=== PATIENT | female | born 1955 | race Caucasian/White ===

== ENCOUNTER 2017-08-26 12:37 | Emergency (ER) | payer OTHER ==
[2017-08-26 13:16] VITALS: BP 171/97
--- NOTE | 2017-08-26 14:42 | RAD ---
HISTORY: Cough COMPARISONS: None VIEWS: 4: Frontal dual-energy and lateral views of the chest. FINDINGS: CARDIOMEDIASTINAL SILHOUETTE: The cardiomediastinal silhouette is normal. SKYLER: The skyler are normal. PLEURA: The costophrenic angles are sharp. No pleural abnormalities are noted. LUNG PARENCHYMA: The lungs are clear. ABDOMEN: The upper abdomen is clear. There is no subphrenic gas. BONES AND SOFT TISSUES: No bone or soft tissue abnormalities are noted. OTHER: None. IMPRESSION: NO ACTIVE CARDIOPULMONARY DISEASE.
--- NOTE | 2017-08-26 14:57 | UC ---
Martha Frost Gabriel, scribed for Robinson Sweet MD on 08/26/17 at 1350 . General HPI - HPI Summary HPI Summary: This patient is a 62 year old F [place] [facility] [place] son radha with a chief complaint of weakness that began yesterday. The patient rates the pain 6/10 in severity. Patient reports cough, palpitations described as slow, fatigue, tremor increased from baseline, and increased urinary frequency. Pt states she has felt like this 3 or for times since late last year , she states she has a diagnosis for this but it does not have a name. She reports receiving disability for it because it interferes with her working and states it is episodic in nature. Typically she just need to rest to resolve it but yesterday she has felt more tired. Hx chronic pain, tremors, chronic fatigue , spinal stenosis in the neck, and ataxia. - History of Current Complaint Chief Complaint: UCGeneralIllness Stated Complaint: WEAKNESS, FATIGUE Time Seen by Provider: 08/26/17 13:41 Hx Obtained From: Patient Onset/Duration: Lasting Days - 1, Still Present Onset Severity: Moderate Current Severity: Moderate Pain Intensity: 6 Associated Signs & Symptoms: Positive: Cough, Palpitations, Weakness, Other - see HPI - Allergy/Home Medications Allergies/Adverse Reactions: Allergies Allergy/AdvReac Type Severity Reaction Status Date / Time diflunisal [From Dolobid] Allergy Unknown Verified 08/26/17 13:16 Reaction Details shellfish derived Allergy Hives/Diff. Verified 08/26/17 13:16 Breathing/I tching cerminex Allergy Rash Uncoded 08/26/17 13:16 Home Medications: Home Medications Lisinopril [Lisinopril 2.5 MG-] 2.5 mg PO DAILY 08/26/17 [History Confirmed ] PMH/Surg Hx/FS Hx/Imm Hx - Additional Past Medical History Additional PMH: chronic fatigue, ataxia, chronic pain, tremor Cardiovascular History: Hypertension GI/ History: Ulcer Neurological History: Other Other Neurological History: stenosis in the neck Other History Of: Negative For: Hepatitis C - Surgical History Surgical History: Yes Surgery Procedure, Year, and Place: cryo surgery cervix - Family History Known Family History: Positive: Hypertension - Social History Lives: With Family Alcohol Use: None Substance Use Type: None Smoking Status (MU): Never Smoked Tobacco Review of Systems Constitutional: Fatigue Respiratory: Cough Cardiovascular: Palpitations - SLOW Genitourinary: Frequency Musculoskeletal: Other: - tremor that has increased from baseline Neurological: Weakness All Other Systems Reviewed And Are Negative: Yes Physical Exam - Summary Physical Exam Summary: General: well-appearing, no pain distress Skin: warm, color reflects adequate perfusion, dry Head: normal Eyes: EOMI, PADMINI ENT: normal Neck: supple, nontender Respiratory: CTA, breath sounds present Cardiovascular: RRR Abdomen: soft, nontender Bowel: present Musculoskeletal: normal, strength/ROM intact Neurological: sensory/motor intact, A&O x3, generalized weakness with no focal deficits Psychological: affect/mood appropriate Triage Information Reviewed: Yes Vital Signs: Initial Vital Signs Temp 97.7 F 08/26/17 13:07 Pulse 70 08/26/17 13:07 Resp 16 08/26/17 13:07 BP 171/97 08/26/17 13:07 Pulse Ox 99 08/26/17 13:07 Vital Signs Reviewed: Yes Diagnostics - EKG Cardiac Rate: NL - taken at 1403 Cardiac Rhythm: Sinus: Normal - at [address] Segment: Normal Course/Dx - Course Course Of Treatment: THE PATIENT IS MOST CONCERNED ABOUT HER HEART PALPITATIONS AND NEAR SYNCOPE. SHE WONDERS IF SHE HAD A HEART ATTACK. I DISCUSSED THE NEED TO BE EVALUATED IN THE EMERGENCY DEPARTMENT FOR THESE CONCERNS. SHE DECLINED AMBULANCE TRANSPORT, HER SON WILL TAKE HER TO THE ED. BP noted and advised to follow up with PCP. - Differential Dx - Multi-Symptom Provider Diagnoses: PALPITATIONS. NEAR SYNCOPE. WEAKNESS. HTN Discharge - Sign-Out/Discharge Documenting (check all that apply): Discharge/Admit/Transfer - Discharge Plan Condition: Stable Disposition: HOME Patient Education Materials: Heart Palpitations (ED), Weakness (ED), Near Syncope (ED) Referrals: [facility] [place]YSIC[place] REFERRAL [Outside] Additional Instructions: GO DIRECTLY TO THE EMERGENCY DEPARTMENT FOR FURTHER EVALUATION OF YOUR PALPITATIONS, NEAR SYNCOPE, AND WEAKNESS. - Billing Disposition and Condition Condition: STABLE Disposition: HOME The documentation as recorded by the Martha leone Gabriel accurately reflects the service I personally performed and the decisions made by me, Robinson Sweet MD.
== END 2017-08-26 15:16 | disposition home or self-care (01) ==
LOC: UCEAST 12:37
DX: R00.2 Palpitations (principal); R55 Syncope and collapse; R53.1 Weakness; I10 Essential (primary) hypertension; Z88.8 Allergy status to other drugs, medicaments and biological substances; Z88.6 Allergy status to analgesic agent; Z91.013 Allergy to seafood
CPT/HCPCS: 71046; 93005; 99202; G0463

== ENCOUNTER 2017-08-26 15:28 | Emergency (ER) | payer OTHER ==
[2017-08-26 16:40] LABS: INR 0.92 (0.77-1.02)
[2017-08-26 16:43] LABS: EGFR Non-African American 67.3 (>60)
[2017-08-26 16:48] LABS: ABS Basophils 0 10^3/ul (0-0.2); ABS Eosinophils 0.2 10^3/ul (0-0.6); ABS Lymphocytes 1.9 10^3/ul (1.0-4.8); ABS Monocytes 0.4 10^3/ul (0-0.8); ABS Neutrophils 3.9 10^3/ul (1.5-7.7); ABS Nucleated RBC 0 10^3/ul; Eosinophil % 2.6 % (0-6); Hematocrit 39 % (35-47); Hemoglobin 13.1 g/dl (12.0-16.0); Lymphocyte % 29.5 % (25-47); Mean Corpuscular HGB Conc 34 g/dl (31-36); Mean Corpuscular Hemoglobin 30 pg (27-31); Mean Corpuscular Volume 90 fL (80-97); Mean Platelet Volume 7.9 um3 (7.4-10.4); Nucleated Red Blood Cells % 0.1; Platelet Count 216 10^3/ul (150-450); Red Blood Count 4.29 10^6/ul (4.0-5.4); Red Cell Distribution Width 12 % (10.5-15); White Blood Count 6.4 10^3/ul (3.5-10.8)
[2017-08-26 18:02] LABS: Urine Appearance Clear; Urine Blood Negative (Negative); Urine Color Yellow; Urine Ketones 1+ (Negative); Urine Protein Negative (Negative); Urine Specific Gravity 1.015 (1.010-1.030); Urine Urobilinogen Negative (Negative)
[2017-08-26 18:30] VITALS: BP 163/89
--- NOTE | 2017-08-26 18:46 | ED ---
Amelia Frost Julia, scribed for Harley Lee on 08/26/17 at 1608 . Palpitations / Dysrhythmia - HPI Summary HPI Summary: This patient is a 62 year old F presenting to [facility] from Urgent Care accompanied by her son with a chief complaint of weakness and lightheadedness with fast palpitations beginning yesterday with slight improvement. She felt like passing out with onset of symptoms, but denies syncope. She denies chest pain. She reports intermittent tremors at baseline and has been seen by a neurologist for these symptoms with no diagnoses. She states current symptoms are worse than her typical flare ups. Medications include 2.5mg of Lisinopril. - History of Current Complaint Chief Complaint: EDDysrhythmPalp Time Seen by Provider: 08/26/17 15:57 Hx Obtained From: Patient Onset/Duration: Lasting Days Severity Initially: Moderate Severity Currently: Mild Character: Fast Associated Signs & Symptoms: Lightheadedness - Allergy/Home Medications Allergies/Adverse Reactions: Allergies Allergy/AdvReac Type Severity Reaction Status Date / Time diflunisal [From Dolobid] Allergy Unknown Verified 08/26/17 15:32 Reaction Details shellfish derived Allergy Hives/Diff. Verified 08/26/17 15:32 Breathing/I tching cerminex Allergy Rash Uncoded 08/26/17 15:32 PMH/Surg Hx/FS Hx/Imm Hx Cardiovascular History: Reports: Hx Hypertension - ON MEDS Respiratory History: Reports: Hx Asthma - EXERCISE INDUCED - Surgical History Surgery Procedure, Year, and Place: cryo surgery cervix Infectious Disease History: No Infectious Disease History: Denies: Traveled Outside the [place] in Last 30 Days - Family History Known Family History: Positive: Hypertension - Social History Alcohol Use: None Substance Use Type: Reports: None Smoking Status (MU): Never Smoked Tobacco Review of Systems Positive: Other - lightheadedness Positive: Palpitations. Negative: Chest Pain Neurological: Other - tremors Positive: Weakness. Negative: Syncope All Other Systems Reviewed And Are Negative: Yes Physical Exam - Summary Physical Exam Summary: Appearance: Well-appearing, Well-nourished, lying in bed comfortably Skin: Warm, dry, no obvious rash Eyes: sclera anicteric, no conjunctiva pallor ENT: mucous membranes moist, pharynx appears normal Neck: Supple, nontender Respiratory: Clear to auscultation, no signs of respiratory distress Cardiovascular: Normal S1, S2. No murmurs. Normal distal pulses in tibial and radial bilaterally. Abdomen: Soft, nontender, normal active bowel sounds present Musculoskeletal: Normal, Strength/ROM Intact Neurological: A&Ox3, awake and alert, mentation is normal, speech is fluent and appropriate, tremors (patient reports at baseline) Psychiatric: affect is normal, does not appear anxious or depressed Triage Information Reviewed: Yes Vital Signs On Initial Exam: Initial Vitals Temp Pulse Resp BP Pulse Ox 97.6 F 63 18 181/138 98 08/26/17 15:32 08/26/17 15:32 08/26/17 15:32 08/26/17 15:32 08/26/17 15:32 Vital Signs Reviewed: Yes Diagnostics - Vital Signs Vital Signs Temp Pulse Resp BP Pulse Ox 08/26/17 15:32 97.6 F 63 18 181/138 98 - Laboratory Lab Results: Lab Results 08/26/17 08/26/17 08/26/17 Range/Units 16:17 16:17 16:17 WBC 6.4 (3.5-10.8) 10^3/ul RBC 4.29 (4.0-5.4) 10^6/ul Hgb 13.1 (12.0-16.0) g/dl Hct 39 (35-47) % MCV 90 (80-97) fL MCH 30 (27-31) pg MCHC 34 (31-36) g/dl RDW 12 (10.5-15) % Plt Count 216 (150-450) 10^3/ul MPV 7.9 (7.4-10.4) um3 Neut % (Auto) 61.3 (38-83) % Lymph % (Auto) 29.5 (25-47) % Smith % (Auto) 6.1 (0-7) % Eos % (Auto) 2.6 (0-6) % Baso % (Auto) 0.5 (0-2) % Absolute Neuts (auto) 3.9 (1.5-7.7) 10^3/ul Absolute Lymphs (auto) 1.9 (1.0-4.8) 10^3/ul Absolute Monos (auto) 0.4 (0-0.8) 10^3/ul Absolute Eos (auto) 0.2 (0-0.6) 10^3/ul Absolute Basos (auto) 0 (0-0.2) 10^3/ul Absolute Nucleated RBC 0 10^3/ul Nucleated RBC % 0.1 INR (Anticoag Therapy) (0.77-1.02) APTT (26.0-36.3) seconds Sodium 141 (139-145) mmol/L Potassium 3.7 (3.5-5.0) mmol/L Chloride 108 (101-111) mmol/L Carbon Dioxide 24 (22-32) mmol/L Anion Gap 9 (2-11) mmol/L BUN 14 (6-24) mg/dL Creatinine 0.86 (0.51-0.95) mg/dL Est GFR ( Amer) 86.6 (>60) Est GFR (Non-Af Amer) 67.3 (>60) BUN/Creatinine Ratio 16.3 (8-20) Glucose 88 (70-100) mg/dL Lactic Acid 0.7 (0.5-2.0) mmol/L Calcium 8.6 (8.6-10.3) mg/dL Total Bilirubin 0.60 (0.2-1.0) mg/dL AST 15 (13-39) U/L ALT 13 (7-52) U/L Alkaline Phosphatase 50 (34-104) U/L Total Creatine Kinase 67 (10-223) U/L Troponin I 0.00 (<0.04) ng/mL B-Natriuretic Peptide ( - 100) pg/mL Total Protein 6.8 (6.4-8.9) g/dL Albumin 4.2 (3.2-5.2) g/dL Globulin 2.6 (2-4) g/dL Albumin/Globulin Ratio 1.6 (1-3) TSH 0.97 (0.34-5.60) mcIU/mL Urine Color Urine Appearance Urine pH (5-9) Ur Specific [place] (1.010-1.030) Urine Protein (Negative) Urine Ketones (Negative) Urine Blood (Negative) Urine Nitrate (Negative) Urine Bilirubin (Negative) Urine Urobilinogen (Negative) Ur Leukocyte Esterase (Negative) Urine WBC (Auto) (Absent) Urine RBC (Auto) (Absent) Ur Squamous Epith Cells (Absent) Urine Bacteria (Absent) Urine Glucose (Negative) 08/26/17 08/26/17 08/26/17 Range/Units 16:17 16:17 17:41 WBC (3.5-10.8) 10^3/ul RBC (4.0-5.4) 10^6/ul Hgb (12.0-16.0) g/dl Hct (35-47) % MCV (80-97) fL MCH (27-31) pg MCHC (31-36) g/dl RDW (10.5-15) % Plt Count (150-450) 10^3/ul MPV (7.4-10.4) um3 Neut % (Auto) (38-83) % Lymph % (Auto) (25-47) % Smith % (Auto) (0-7) % Eos % (Auto) (0-6) % Baso % (Auto) (0-2) % Absolute Neuts (auto) (1.5-7.7) 10^3/ul Absolute Lymphs (auto) (1.0-4.8) 10^3/ul Absolute Monos (auto) (0-0.8) 10^3/ul Absolute Eos (auto) (0-0.6) 10^3/ul Absolute Basos (auto) (0-0.2) 10^3/ul Absolute Nucleated RBC 10^3/ul Nucleated RBC % INR (Anticoag Therapy) 0.92 (0.77-1.02) APTT 32.3 (26.0-36.3) seconds Sodium (139-145) mmol/L Potassium (3.5-5.0) mmol/L Chloride (101-111) mmol/L Carbon Dioxide (22-32) mmol/L Anion Gap (2-11) mmol/L BUN (6-24) mg/dL Creatinine (0.51-0.95) mg/dL Est GFR ( Amer) (>60) Est GFR (Non-Af Amer) (>60) BUN/Creatinine Ratio (8-20) Glucose (70-100) mg/dL Lactic Acid (0.5-2.0) mmol/L Calcium (8.6-10.3) mg/dL Total Bilirubin (0.2-1.0) mg/dL AST (13-39) U/L ALT (7-52) U/L Alkaline Phosphatase (34-104) U/L Total Creatine Kinase (10-223) U/L Troponin I (<0.04) ng/mL B-Natriuretic Peptide 72 ( - 100) pg/mL Total Protein (6.4-8.9) g/dL Albumin (3.2-5.2) g/dL Globulin (2-4) g/dL Albumin/Globulin Ratio (1-3) TSH (0.34-5.60) mcIU/mL Urine Color Yellow Urine Appearance Clear Urine pH 5.0 (5-9) Ur Specific [place] 1.015 (1.010-1.030) Urine Protein Negative (Negative) Urine Ketones 1+ A (Negative) Urine Blood Negative (Negative) Urine Nitrate Negative (Negative) Urine Bilirubin Negative (Negative) Urine Urobilinogen Negative (Negative) Ur Leukocyte Esterase Trace A (Negative) Urine WBC (Auto) Trace(0-5/hpf) (Absent) Urine RBC (Auto) 2+(6-10/hpf) A (Absent) Ur Squamous Epith Cells Present A (Absent) Urine Bacteria Absent (Absent) Urine Glucose Negative (Negative) Result Diagrams: 08/26/17 16:17 08/26/17 16:17 Lab Statement: Any lab studies that have been ordered have been reviewed, and results considered in the medical decision making process. - EKG 16:18 Cardiac Rate: NL EKG Rhythm: Sinus Rhythm - 61 BPM EKG Interpretation: no acute changes Course/Dx - Course Course Of Treatment: 62 year old F presenting to [facility] from Urgent Care accompanied by her son with a chief complaint of weakness and lightheadedness with fast palpitations beginning yesterday with slight improvement. She felt like passing out with onset of symptoms, but denies syncope. She denies chest pain. She states her major concern is the heart palpitations. Bloodwork is unremarkable. UA is unremarkable. EKG reveals no acute findings. Patient is informed of these results. Patient is agreeable with plan and provided with her lab results during this visit. - Diagnoses Differential Diagnosis/HQI/PQRI: Positive: Other - uti/viral syndrome/pneumonia Provider Diagnoses: Palpitations Discharge - Sign-Out/Discharge Documenting (check all that apply): Discharge/Admit/Transfer - discharged - Discharge Plan Condition: Stable Disposition: HOME Patient Education Materials: Heart Palpitations (ED) Referrals: [facility] [place] PHYSICIAN REFERRAL [Outside] - As Soon As Possible (Contact the [facility] [place] Physician referral if you need a primary care physician. ) - Billing Disposition and Condition Condition: STABLE Disposition: HOME The documentation as recorded by the Amelia leone Julia accurately reflects the service I personally performed and the decisions made by me, Harley Lee.
== END 2017-08-26 18:29 | disposition home or self-care (01) ==
LOC: ED 15:28
DX: R00.2 Palpitations (principal); R07.89 Other chest pain; R42 Dizziness and giddiness; R53.1 Weakness; I10 Essential (primary) hypertension; J45.990 Exercise induced bronchospasm; Z88.8 Allergy status to other drugs, medicaments and biological substances; Z91.013 Allergy to seafood
CPT/HCPCS: 36415; 80053; 81003; 81015; 82550; 83605; 83880; 84443; 84484; 85025; 85610; 85730; 87086; 93005; 99283